=== PATIENT | female | born 1985 | race Caucasian/White ===

== ENCOUNTER 2021-12-20 09:39 | Day surgery (SDC) | payer OTHER ==
[~2021-12-20] VITALS: Ht 160 cm; Wt 66.2 kg
[2021-12-20] MEDS ORDERED: diphenhydrAMINE 50 MG/ML VIAL ONE (11:21)
[2021-12-20] MEDS ORDERED: fentaNYL citrate 0.05 MG/ML VIAL ONE (11:21)
[2021-12-20] MEDS ORDERED: MIDAZOLAM 2 MG/2 ML VIAL ONE (11:21)
[2021-12-20] MEDS ORDERED: MIDAZOLAM 2 MG/2 ML VIAL IVP ONE (12:35)
[2021-12-20] MEDS ORDERED: diphenhydrAMINE 50 MG/ML VIAL IVP ONE (12:35)
[2021-12-20] MEDS ORDERED: fentaNYL citrate 0.05 MG/ML VIAL IVP ONE (12:35)
== END 2021-12-20 12:53 | disposition home or self-care (01) ==
LOC: MDS 09:39 → MMU 10:19 → MDS 12:53
PROVIDERS: ATTEND Internal Medicine Gastroenterology
DX: K21.9 Gastro-esophageal reflux disease without esophagitis (principal); K31.89 Other diseases of stomach and duodenum; K29.70 Gastritis, unspecified, without bleeding; K44.9 Diaphragmatic hernia without obstruction or gangrene; Z98.84 Bariatric surgery status; K59.00 Constipation, unspecified; Z98.890 Other specified postprocedural states; Z79.899 Other long term (current) drug therapy; Z20.822 Contact with and (suspected) exposure to COVID-19
CPT/HCPCS: 43239; 87426; J1200; J2250; J3010